=== PATIENT | male | born 1980 | race American Indian/Alaskan Native ===

== ENCOUNTER 2016-10-22 05:21 | Emergency (ER) | payer BC, OTHER ==
[2016-10-22 06:14] VITALS: BP 119/80
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
[2016-10-22] MEDS ORDERED: MOTRIN PO ONE (07:26)
[2016-10-22] MEDS ORDERED: BOOSTRIX IM ONE (07:27)
[2016-10-22 08:33] LABS: Urine Drugs of Abuse Note Disclamer
== END 2016-10-22 09:36 | disposition home or self-care (01) ==
LOC: ED 05:21
DX: S10.83XA Contusion of other specified part of neck, initial encounter (principal); S00.01XA Abrasion of scalp, initial encounter; S00.81XA Abrasion of other part of head, initial encounter; Y04.0XXA Assault by unarmed brawl or fight, initial encounter; Y93.89 Activity, other specified; Y99.8 Other external cause status; Y92.89 Other specified places as the place of occurrence of the external cause
CPT/HCPCS: 36415; 70450; 72125; 80307; 90471; 90715; 99284; G0480; 80320

== ENCOUNTER 2021-10-20 17:46 | Emergency (ER) | payer BC ==
--- NOTE | 2021-10-20 21:45 | XRay Report ---
LEFT SHOULDER 3 VIEW(S) INDICATION / CLINICAL INFORMATION: left shoulder pain COMPARISON: None available. FINDINGS: BONES / JOINT(S): No acute fracture or subluxation. No significant arthritis. SOFT TISSUES: No significant abnormality. ADDITIONAL FINDINGS: None. Signer Name: Rico Avila MD Signed: 10/20/2021 9:41 PM Workstation Name: [id number]
--- NOTE | 2021-10-20 22:43 | Emergency Department Report ---
ED Upper Extremity Inj HPI - General Chief Complaint: Extremity Problem,Nontraumatic Stated Complaint: SHOULDER PAIN Time Seen by Provider: 10/20/21 21:14 Source: patient Mode of arrival: Ambulatory Limitations: No Limitations - History of Present Illness Initial Comments: 41-year-old male presents emergency department complaining of, complaining of atraumatic dull aching pain to the left shoulder of unknown etiology has been present for quite a while off and on and now beginning to cause occasional tingling to his fingers. Reports no recent direct trauma, no swelling, no fever, chills, sweats. No chest pain, no palpitations, no shortness of breath MD Complaint: Injury to:: left -: Gradual Other Extremity Injury: Shoulder: Left Other Injuries: none Handedness: right Severity scale (0 -10): 6 Improves With: none Worsens With: none Associated Symptoms: denies other symptoms - Related Data Previous Rx's Medication Instructions Recorded Last Taken Type Amoxicillin/K Clav Tab [Augmentin 1 tab PO Q12HR #20 tab 09/02/15 Unknown Rx 875 mg] Ibuprofen [Motrin 800 MG tab] 800 mg PO Q8HR PRN #30 tablet 09/02/15 Unknown Rx Ibuprofen [Motrin 600 MG tab] 600 mg PO Q8H PRN #15 tablet 10/22/16 Unknown Rx Ketorolac [Toradol] 10 mg PO Q6H PRN #15 tablet 10/20/21 Unknown Rx Allergies Allergy/AdvReac Type Severity Reaction Status Date / Time No Known Allergies Allergy Verified 10/20/21 18:02 ED Review of Systems ROS: Stated complaint: SHOULDER PAIN Other details as noted in HPI Comment: All other systems reviewed and negative ED Past Medical Hx - Social History Smoking Status: Never Smoker - Medications Home Medications: Home Medications Medication Instructions Recorded Confirmed Last Taken Type Amoxicillin/K Clav Tab [Augmentin 1 tab PO Q12HR #20 tab 09/02/15 Unknown Rx 875 mg] Ibuprofen [Motrin 800 MG tab] 800 mg PO Q8HR PRN #30 tablet 09/02/15 Unknown Rx Ibuprofen [Motrin 600 MG tab] 600 mg PO Q8H PRN #15 tablet 10/22/16 Unknown Rx Ketorolac [Toradol] 10 mg PO Q6H PRN #15 tablet 10/20/21 Unknown Rx ED Physical Exam - General Limitations: No Limitations General appearance: alert, in no apparent distress - Head Head exam: Present: atraumatic, normocephalic - Eye Eye exam: Present: normal appearance - ENT ENT exam: Present: mucous membranes moist - Neck Neck exam: Present: normal inspection - Respiratory Respiratory exam: Present: normal lung sounds bilaterally. Absent: respiratory distress - Cardiovascular Cardiovascular Exam: Present: regular rate, normal rhythm. Absent: systolic murmur, diastolic murmur, rubs, gallop - GI/Abdominal GI/Abdominal exam: Present: soft, normal bowel sounds - Rectal Rectal exam: Present: deferred - Extremities Exam Extremities exam: Present: normal inspection, tenderness, normal capillary refill - Expanded Upper Extremity Exam Left Shoulder Exam: Present: tenderness, tenderness over AC joint. Absent: swelling, abrasion, ecchymosis, crepidus, dislocation, erythema Upper Arm exam: Present: normal inspection Elbow exam: Present: normal inspection, full ROM Forearm Wrist exam: Present: normal inspection, full ROM Hand Wrist exam: Present: normal inspection, full ROM - Back Exam Back exam: Present: normal inspection - Neurological Exam Neurological exam: Present: alert, oriented X3, CN II-XII intact, normal gait - Psychiatric Psychiatric exam: Present: normal affect, normal mood - Skin Skin exam: Present: warm, dry, intact, normal color. Absent: rash ED Course Vital Signs 10/20/21 17:59 Temperature 98.2 F Pulse Rate 115 H Respiratory 20 Rate Blood Pressure 127/89 [Right] O2 Sat by Pulse 97 Oximetry Critical care attestation.: If time is entered above; I have spent that time in minutes in the direct care of this critically ill patient, excluding procedure time. ED Disposition Clinical Impression: Pain of left shoulder joint on movement Disposition: HOME / SELF CARE / HOMELESS Is pt being admited?: No Does the pt Need Aspirin: No Condition: Stable Instructions: Shoulder Pain, Musculoskeletal Pain, How to Use Cold Therapy, Varsha int Pain Prescriptions: Ketorolac [Toradol] 10 mg PO Q6H PRN #15 tablet PRN Reason: Pain Referrals: [facility] [Provider Group] - 3-5 Days
[2021-10-20 23:35] VITALS: BP 125/83
== END 2021-10-20 23:24 | disposition home or self-care (01) ==
LOC: ED 17:46
DX: M25.512 Pain in left shoulder (principal)
CPT/HCPCS: 99283

== ENCOUNTER 2021-11-20 15:24 | Emergency (ER) | payer BC ==
[2021-11-20 15:29] VITALS: BP 157/94
--- NOTE | 2021-11-20 17:51 | XRay Report ---
RIGHT FOOT 3 VIEW(S) INDICATION / CLINICAL INFORMATION: injury, pain and swelling. COMPARISON: None available. FINDINGS: BONES / JOINT(S): Mildly comminuted fracture of the central calcaneus with extension to the posterior subtalar joint. No other fracture. No significant arthritis. SOFT TISSUES: Mild soft tissue swelling of the hindfoot. ADDITIONAL FINDINGS: None. IMPRESSION: 1. Calcaneal fracture. Signer Name: Bladimir Long MD Signed: 11/20/2021 5:47 PM Workstation Name: [id number]
--- NOTE | 2021-11-20 17:51 | XRay Report ---
RIGHT ANKLE 3 VIEW(S) INDICATION / CLINICAL INFORMATION: injury, pain and swelling COMPARISON: None available. FINDINGS: BONES / JOINT(S): Mildly comminuted fracture of the central calcaneus extending to the posterior subt alar joint. No other ankle or hindfoot fracture. No significant arthritis. SOFT TISSUES: No significant abnormality. ADDITIONAL FINDINGS: None. IMPRESSION: 1. Calcaneal fracture. Signer Name: Bladimir Long MD Signed: 11/20/2021 5:46 PM Workstation Name: [email or web address]
[2021-11-21] MEDS ORDERED: HYDROcodone/ACETAMINOPHEN 5-325 MG TAB PO ONE (02:12)
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
== END 2021-11-21 04:37 | disposition home or self-care (01) ==
LOC: ED 15:24
DX: S92.001A Unspecified fracture of right calcaneus, initial encounter for closed fracture (principal); X58.XXXA Exposure to other specified factors, initial encounter; Y93.89 Activity, other specified; Y92.89 Other specified places as the place of occurrence of the external cause; Y99.8 Other external cause status
CPT/HCPCS: 99282; 99283